=== PATIENT | male | born 1970 | race Caucasian/White ===

== ENCOUNTER 2017-02-01 17:29 | Emergency (ER) | payer BC ==
[2017-02-01 17:45] VITALS: BP 130/81
--- NOTE | 2017-02-01 18:23 | EDM.PDOC ---
ED HPI GENERAL MEDICAL PROBLEM - General Chief Complaint: General Stated Complaint: FEVER AND CHILLS Time Seen by Provider: 02/01/17 18:05 Source of Information: Reports: Patient History Limitations: Reports: No limitations - History of Present Illness INITIAL COMMENTS - FREE TEXT/NARRATIVE: According to patient he has orthoscopic left shoulder procedure done on thursday at [facility]. Since then he has been having sore throat. he did have intubation for procedure. Also he claims that he has been coughing and has had fever and chills last night and had shortness of breath. Cough has got worse. No nausea or vomiting. No other complaints. Associated Symptoms: Reports: cough, fever/chills, shortness of breath. Denies : confusion, headaches, loss of appetite, nausea/vomiting, rash, seizure, weakness - Related Data Allergies Allergy/AdvReac Type Severity Reaction Status Date / Time No Known Allergies Allergy Verified 02/01/17 17:38 Home Meds: Home Meds Naltrexone HCl [Revia] 50 mg PO DAILY 05/02/16 [History] QUEtiapine [SEROquel] 100 mg PO DAILY 02/01/17 [History] oxyCODONE HCl/Acetaminophen [oxyCODONE-Acetaminophen 5-325] 1 tab PO Q4H PRN [History] Past Medical History - Past Health History Medical/Surgical History: Denies Medical/Surgical History HEENT History: Reports: Impaired vision Respiratory History: Reports: Bronchitis, recurrent Musculoskeletal History: Reports: Arthritis, Other (see below) Other Musculoskeletal History: history of clavicle fracture and multiple injuries to left shoulder when in the Psychiatric History: Reports: Addiction, Depression, PTSD Social & Family History - Family History Family Medical History: Noncontributory - Tobacco Use Smoking Status *Q: Current Every Day Smoker Years of Tobacco use: 30 Packs/Tins Daily: 1 - Alcohol Use Days Per Week of Alcohol Use: 1 Number of Drinks Per Day: 1 Total Drinks Per Week: 1 - Recreational Drug Use Recreational Drug Use: No ED ROS GENERAL - Review of Systems Review Of Systems: See Below Constitutional: Reports: fever, chills HEENT: Reports: Contact Lenses. Denies: Rhinitis, Sinus problem Respiratory: Reports: Wheezing, Cough, Sputum. Denies: Pleuritic Chest Pain Cardiovascular: Denies: Chest pain, Lightheadedness GI/Abdominal: Denies: Abdominal pain, Diarrhea, Nausea, Vomiting : Denies: dysuria, flank pain Musculoskeletal: Denies: joint pain, joint swelling Skin: Denies: pruritis, rash ED EXAM, GENERAL - Physical Exam Exam: See Below Exam Limited By: No limitations General Appearance: alert, WD/WN, no apparent distress Eye Exam: bilateral eye: EOMI, PERRL Ears: normal external exam, normal canal, hearing grossly normal, normal TMs Ear Exam: bilateral ear: auricle normal, canal normal, TM normal Nose: normal inspection, normal mucosa, no blood Throat/Mouth: Normal inspection, Normal lips, Normal teeth, Normal gums, Normal oropharynx, Normal voice, No airway compromise Head: atraumatic, normocephalic Neck: normal inspection, supple, non-tender, full range of motion Respiratory/Chest: no respiratory distress, lungs clear, normal breath sounds, no accessory muscle use, chest non-tender Cardiovascular: normal peripheral pulses, regular rate, rhythm, no edema, no gallop, no JVD, no murmur, no rub GI/Abdominal: normal bowel sounds, soft, non tender, no organomegaly, no distention, no abnormal bruit, no mass Extremities: normal inspection, normal range of motion, non-tender, normal capillary refill, no pedal edema Course - Vital Signs Text/Narrative:: Pt's CBC is 8.4 . Chest xray appears normal.Pt's vitals are stable and his SPO2 is 98% on room air. Apparently pt has mild bronchitis ,post intubation upper airway irritation. Advised deep breathing exercises. Robutussin DM for cough. Followup in clinic if symptoms worsen. Last Recorded V/S: Last Vital Signs Temp 97.2 F 02/01/17 17:43 Pulse 121 H 02/01/17 17:43 Resp 16 02/01/17 17:43 BP 130/81 02/01/17 17:43 Pulse Ox 98 02/01/17 17:43 - Orders/Labs/Meds Orders: Active Orders 24 hr Category Date Time Status Chest 2V [CR] Stat Exams 02/01/17 17:53 Ordered Labs: Laboratory Tests 02/01/17 Range/Units 17:51 WBC 8.4 (4.0-11.0) K/uL RBC 5.11 (4.50-6.50) M/uL Hgb 15.7 (13.0-18.0) g/dL Hct 45.7 (40.0-54.0) % MCV 89 (76-96) fL MCH 30.7 (27.0-32.0) pg MCHC 34.4 (31.0-35.0) g/dL RDW 14.1 (11.0-16.0) % Plt Count 268 (150-400) K/uL MPV 9.5 (6.0-10.0) fL Neut % (Auto) 71.2 H (45.0-70.0) % Lymph % (Auto) 11.4 L (20.0-40.0) % Harvey % (Auto) 16.4 H (3.0-10.0) % Eos % (Auto) 0.8 L (1.0-5.0) % Baso % (Auto) 0.2 (0.0-0.5) % Neut # (Auto) 5.96 (2.00-7.50) K/uL Lymph # (Auto) 0.96 L (1.50-4.00) K/uL Harvey # (Auto) 1.38 H (0.20-0.80) K/uL Eos # (Auto) 0.07 (0.04-0.40) K/uL Baso # (Auto) 0.02 (0.02-0.10) K/uL Departure - Departure Time of Disposition: 18:45 Disposition: Home, Self-Care 01 Condition: good Clinical Impression: Bronchitis Forms: ED Department Discharge - Problem List & Annotations (1) Bronchitis SNOMED Code(s): 46564758 Code(s): J40 - BRONCHITIS, NOT SPECIFIED ACUTE OR CHRONIC Status: Acute Current Visit: Yes - Problem List Review Problem List Initiated/Reviewed/Updated: Yes - My Orders Last 24 Hours: My Active Orders 02/01/17 17:53 Chest 2V [CR] Stat - Assessment/Plan Last 24 Hours: My Active Orders 02/01/17 17:53 Chest 2V [CR] Stat Assessment:: irritant bronchitis Plan: Pt's CBC is 8.4 . Chest xray appears normal.Pt's vitals are stable and his SPO2 is 98% on room air. Apparently pt has mild bronchitis ,post intubation upper airway irritation. Advised deep breathing exercises. Alistairussin DM for cough. Followup in clinic if symptoms worsen.
--- NOTE | 2017-02-02 07:34 | CR ---
DATE OF SERVICE: 02/01/17 CLINICAL DATA: Congestion PA AND LATERAL CHEST: The heart size is normal. The lungs are clear. No pneumothorax. No pleural effusions. No areas of consolidation. The exam is otherwise unremarkable. No evidence of acute intrathoracic disease. [id number] [facility]
== END 2017-02-01 18:50 | disposition home or self-care (01) ==
LOC: LB.ED 17:29
DX: J40 Bronchitis, not specified as acute or chronic (principal); F32.9 Major depressive disorder, single episode, unspecified; M19.90 Unspecified osteoarthritis, unspecified site; F17.210 Nicotine dependence, cigarettes, uncomplicated; Z79.899 Other long term (current) drug therapy
CPT/HCPCS: 36415; 71020; 85025; 99283